=== PATIENT | male | born 1975 ===

== ENCOUNTER → 2018-01-03 | Outpatient (CLI) | payer OTHER | LOC: BMCIMAGING 14:50 → EDSEX 14:50 | PROVIDERS: ATTEND Family Medicine | DX: R17 Unspecified jaundice (principal); K82.9 Disease of gallbladder, unspecified ==

== ENCOUNTER 2018-01-16 08:58 | Outpatient (CLI) | payer OTHER ==
[2018-01-16] MEDS ORDERED: NALOXONE HCL 0.4 MG/ML INJ IVP PRN (09:06)
[2018-01-16] MEDS ORDERED: MEPERIDINE 25 MG/ML SYR IVP PRN (09:06)
[2018-01-16] MEDS ORDERED: FLUMAZENIL 0.5 MG/5 ML MDV IVP PRN (09:06)
[2018-01-16] MEDS ORDERED: fentaNYL 100 MCG/2 ML INJ IVP PRN (09:06)
[2018-01-16] MEDS ORDERED: MIDAZOLAM 2 MG/2 ML VIAL IVP PRN (09:06)
[2018-01-16] MEDS ORDERED: NS 1,000 ML IV SCH (09:15)
[2018-01-16] MEDS ORDERED: LIDOCAINE 1% 300 MG/30 ML SDV ONE (10:08)
[2018-01-16] MEDS ORDERED: NALOXONE HCL 0.4 MG/ML INJ ONE (10:11)
[2018-01-16] MEDS ORDERED: FLUMAZENIL 0.5 MG/5 ML MDV IVP ONE (10:11)
[2018-01-16] MEDS ORDERED: fentaNYL 100 MCG/2 ML INJ ONE (10:11)
[2018-01-16] MEDS ORDERED: MIDAZOLAM 2 MG/2 ML VIAL ONE (10:12)
--- NOTE | 2018-01-16 10:18 | PDRADPRE ---
Radiology History & Physical Indication for procedure: liver disease Allergies/Adverse Reactions: No Known Allergies Allergy (Unverified 01/11/18 16:06) Mental status: A&Ox3 Heart exam: regular rate and rhythm
--- NOTE | 2018-01-16 10:18 | PDPROPOC ---
Sedation Plan of Care ASA Classification: ASA 2 Mallampati Score: Class 2 Mallampati Reference Image:
[2018-01-16] MEDS ORDERED: ONDANSETRON 4 MG/2 ML VIAL ONE (10:21)
[2018-01-16] MEDS ORDERED: ONDANSETRON 4 MG/2 ML VIAL IVP PRN (11:06)
[2018-01-16] MEDS ORDERED: oxyCODONE IR 5 MG TAB PO PRN (11:06)
[2018-01-16 14:23] VITALS: BP 109/71
== END 2018-01-16 14:23 | disposition home or self-care (01) ==
LOC: FIMAGING 08:58
PROVIDERS: ATTEND Physician Assistant
PROC: 0FB03ZX Excision of Liver, Percutaneous Approach, Diagnostic (ICD-10-PCS; principal; 2018-01-16 11:13)
DX: K73.9 Chronic hepatitis, unspecified (principal); K74.0 Hepatic fibrosis
CPT/HCPCS: J2250; J2310; J2405; J3010